=== PATIENT | female | born 1955 | race Caucasian/White ===

== ENCOUNTER 2024-05-27 21:12 | Emergency (ER) | payer MEDICARE, SELFPAY ==
--- NOTE | 2024-05-27 21:26 | ED.GENADULT ---
HPI - General Adult General Chief complaint: Recheck/Abnormal Lab/Rx Stated complaint: surgery wound reopened Time Seen by Provider: 05/27/24 21:14 History of Present Illness HPI narrative: 69-year-old female presents for wound evaluation. One day prior she had basal cell carcinoma excised at her [employer] developer's office near [place]. She was in [place] for a family reunion. This evening while she was lying down for bed she noticed that her back seemed wet and there was bleeding present. started to remove the dressings and took a picture to show to their soa integration developer, however became concerned that further removal of the dressings may cause tearing or disturb the skin and so they came to the ED for evaluatiion Patient History Social History Smoking Status: Never smoker Exam Initial Vital Signs Initial Vital Signs: Vital Signs Temperature 98.7 F 05/27/24 21:28 Pulse Rate 84 05/27/24 21:28 Respiratory Rate 20 05/27/24 21:28 Blood Pressure 159/84 H 05/27/24 21:28 Pulse Oximetry 98 05/27/24 21:28 Oxygen Delivery Method Room Air 05/27/24 21:28 Const: Awake, alert, no acute distress, nontoxic appearing Skin: quarter sized wound mid-back with clean margins, no surrounding erythema, no active bleeding Neuro: AO x3, CN II-XII grossly intact, moves all extremities Course Vital Signs Vital signs: Vital Signs - 8 hr 05/27/24 21:28 Temperature 98.7 F Pulse Rate 84 Respiratory Rate 20 Blood Pressure 159/84 H Pulse Oximetry 98 Oxygen Delivery Method Room Air Medical Decision Making MDM Narrative Additional Information: Patient presenting for wound evaluation after excision of basal cell carcinoma. No active bleeding. Wound appears to have clean margins and no signs of active infection. states soa integration developer not concerned by appearance via cell phone picture. Wound gently cleaned and dressing reapplied. Given additional bandages for home. patient counseled to f/u with dermatology as previously scheduled. Discharge Plan Departure Patient Disposition: Home Clinical Impression: Encounter for wound re-check Instructions: How to Care for a Surgical Wound Activity Restrictions/Additional Instructions: Your wound today looks clean, no signs of infection, in it had already stopped bleeding by the time I evaluated it. Keep the dressing in place, use the additional dressings as needed if they become soiled or bloody. Follow up as scheduled with your [employer] integration developer. Stand Alone Forms: Patient Portal/API
[2024-05-27 21:28] VITALS: BP 159/84; PULSE 84; RESP 20; TEMP 37.1; O2SAT 98; BMI 20.1
== END 2024-05-27 21:44 | disposition home or self-care (01) ==
PROVIDERS: Emergency Provider Emergency Medicine
DX: Z48.00 Encounter for change or removal of nonsurgical wound dressing (principal)
CPT/HCPCS: 99281